=== PATIENT | female | born 1965 | race American Indian/Alaskan Native ===

== ENCOUNTER 2017-03-06 13:44 | Outpatient (CLI) | payer BC ==
--- NOTE | 2017-03-06 16:19 | Mammography Report ---
Screening mammogram: The patient has a heterogeneously dense fibroglandular pattern which is symmetrically distributed bilaterally. Comparison to prior exams in 2014 and 2015 raise suspicion that there is possibly a new asymmetry in the left superior breast. This is identified on the exam. Breast pattern is not otherwise remarkable bilaterally. CAD used. Impression: Left breast asymmetry. Recommendation: Additional compression imaging of the left breast and ultrasound, if needed. BI-RADS CATEGORY: 0 = Needs additional imaging evaluation ACR BI-RADS MAMMOGRAPHIC CODES: 0 = Needs additional imaging evaluation; 1 = Negative; 2 = Benign; 3 = Probably benign; 4 = Suspicious; 5 = Malignant; 6 = Known biopsy-proven malignancy COMMENT: 1. Dense breast tissue, i.e., adenosis, fibrocystic changes, etc., may obscure an underlying neoplasm. 2. Approximately 10% of cancers are not detected with mammography. 3. A negative mammography report should not delay biopsy if a clinically suspicious mass is present.
== END 2017-03-06 13:45 | disposition home or self-care (01) ==
LOC: MAMMO 13:44
PROVIDERS: ATTEND Physician Assistant Medical
DX: Z12.31 Encounter for screening mammogram for malignant neoplasm of breast (principal); I10 Essential (primary) hypertension
CPT/HCPCS: 77067; G0202

== ENCOUNTER 2018-01-22 11:00 | Outpatient (CLI) | payer BC | END 2018-01-22 11:01 | disposition home or self-care (01) | LOC: SLR 11:00 | PROVIDERS: ATTEND Otolaryngology | DX: G47.33 Obstructive sleep apnea (adult) (pediatric) (principal); I10 Essential (primary) hypertension; Z90.710 Acquired absence of both cervix and uterus | CPT/HCPCS: G0399 ==

== ENCOUNTER 2018-07-09 08:38 | Outpatient (CLI) | payer BC ==
--- NOTE | 2018-07-09 14:42 | Mammography Report ---
BILATERAL DIGITAL SCREENING MAMMOGRAM with CAD: 07/09/18 08:38:00 CLINICAL: Routine screening. COMPARISON:03/06/17 and 06/19/15 FINDINGS: The breasts are heterogeneously dense, which may obscure small masses. No mass, architectural distortion or suspicious calcifications. IMPRESSION: No mammographic evidence of malignancy. BI-RADS CATEGORY: 1 - - Negative RECOMMENDATION: Routine mammographic screening in one year.
== END 2018-07-09 08:39 | disposition home or self-care (01) ==
LOC: MAMMO 08:38
DX: Z12.31 Encounter for screening mammogram for malignant neoplasm of breast (principal); I10 Essential (primary) hypertension; Z90.710 Acquired absence of both cervix and uterus
CPT/HCPCS: 77067

== ENCOUNTER 2019-07-15 07:31 | Outpatient (CLI) | payer BC ==
--- NOTE | 2019-07-18 08:03 | Mammography Report ---
DIGITAL SCREENING MAMMOGRAM WITH CAD, 07/15/2019 INDICATION: Routine screening mammography. TECHNIQUE: Digital bilateral 2D mammography was obtained in the craniocaudal and mediolateral obliq ue projections. COMPARISON: 07/09/2018, 03/06/2017, 06/19/2015. FINDINGS: Breast Density: There are scattered areas of fibroglandular density. There is no evidence of dominant mass, suspicious calcifications or architectural distortion in eithe r breast. IMPRESSION: No evidence of malignancy. A routine screening mammogram in one year is recommended. BI-RADS Category 1: Negative. No mammographic evidence of malignancy. Recommend routine screening m ammography in one year. A "normal" or negative report should not discourage follow up or biopsy of a clinically significant f inding. A written summary of these findings will be mailed to the patient. The patient will be entered into a mammography reporting system which will generate a reminder letter for the patient's next appointmen t at the appropriate interval. The [employer] recommends yearly mammograms starting at age 40 and continuing as l charlee as a woman is in good health. Breast MRI is recommended for women with an approximate 20-25% or greater lifetime risk of breast cancer, including women with a strong family history of breast or ova ru cancer or who have been treated for Hodgkin's disease. Signer Name: Marcin Castorena MD Signed: 07/18/2019 7:58 AM Workstation Name: [id number]
== END 2019-07-15 07:32 | disposition home or self-care (01) ==
LOC: MAMMO 07:31
DX: Z12.31 Encounter for screening mammogram for malignant neoplasm of breast (principal); N64.89 Other specified disorders of breast
CPT/HCPCS: 77067

== ENCOUNTER 2020-07-18 07:29 | Outpatient (CLI) | payer BC ==
--- NOTE | 2020-07-18 08:32 | Mammography Report ---
DIGITAL SCREENING MAMMOGRAM WITH CAD, 07/18/2020 CLINICAL INFORMATION / INDICATION: Routine screening mammography. TECHNIQUE: Digital bilateral 2D mammography was obtained in the craniocaudal and mediolateral obliqu e projections. This examination was interpreted with the benefit of Computer-Aided Detection analysis . COMPARISON: 07/15/2019 FINDINGS: Breast Density: The breasts are heterogeneously dense, which may obscure small masses. No dominant mass, suspicious calcifications, or architectural distortion in either breast. IMPRESSION: No mammographic evidence of malignancy. Follow up recommendation: Routine yearly BI-RADS Category 1: Negative. A "normal" or negative report should not discourage follow up or biopsy of a clinically significant f inding. A written summary of these findings will be mailed to the patient. The patient will be entered into a mammography reporting system which will generate a reminder letter for the patient's next appointmen t at the appropriate interval. The [employer] recommends yearly mammograms starting at age 40 and continuing as l charlee as a woman is in good health. Breast MRI is recommended for women with an approximate 20-25% or greater lifetime risk of breast cancer, including women with a strong family history of breast or ova ru cancer or who have been treated for Hodgkin's disease. Signer Name: Karlos William MD Signed: 07/18/2020 8:28 AM Workstation Name: [id number]
== END 2020-07-18 07:30 | disposition home or self-care (01) ==
LOC: MAMMO 07:29
DX: Z12.31 Encounter for screening mammogram for malignant neoplasm of breast (principal)
CPT/HCPCS: 77067

== ENCOUNTER 2021-07-19 08:05 | Outpatient (CLI) | payer BC ==
--- NOTE | 2021-07-19 10:13 | Mammography Report ---
DIGITAL SCREENING MAMMOGRAM WITH CAD, 07/19/2021 CLINICAL INFORMATION / INDICATION: Routine screening mammography. SCREENING MAMMOGRAM TECHNIQUE: Digital bilateral 2D mammography was obtained in the craniocaudal and mediolateral obliqu e projections. This examination was interpreted with the benefit of Computer-Aided Detection analysis . COMPARISON: 07/18/2020. FINDINGS: Breast Density: The breasts are heterogeneously dense, which may obscure small masses. No dominant mass, suspicious calcifications, or architectural distortion in either breast. IMPRESSION: No mammographic evidence of malignancy. Follow up recommendation: Routine yearly BI-RADS Category 1: NEGATIVE A "normal" or negative report should not discourage follow up or biopsy of a clinically significant f inding. A written summary of these findings will be mailed to the patient. The patient will be entered into a mammography reporting system which will generate a reminder letter for the patient's next appointmen t at the appropriate interval. The [employer] recommends yearly mammograms starting at age 40 and continuing as l charlee as a woman is in good health. Breast MRI is recommended for women with an approximate 20-25% or greater lifetime risk of breast cancer, including women with a strong family history of breast or ova ru cancer or who have been treated for Hodgkin's disease. Signer Name: Pancho Hurtado MD Signed: 07/19/2021 10:09 AM Workstation Name: [id number]
== END 2021-07-19 08:06 | disposition home or self-care (01) ==
LOC: MAMMO 08:05
PROVIDERS: ATTEND Family Medicine Adult Medicine
DX: Z12.31 Encounter for screening mammogram for malignant neoplasm of breast (principal)
CPT/HCPCS: 77067